=== PATIENT | male | born 1985 | race Caucasian/White ===

== ENCOUNTER 2020-03-22 12:58 | Emergency (ER) | payer MEDICAID ==
[~2020-03-22] VITALS: Ht 170.2 cm; Wt 85.7 kg
[~2020-03-22 12:58] MED LIST: IBUP-44 PO
[2020-03-22 13:24] VITALS: BP 138/81
--- NOTE | 2020-03-22 13:40 | NUR ---
35 y/o m c/c dizziness,numbness/tingling bilateral upper extremities since 1220 hours today. per pt exercising when s/s occurred, blood pressure taken outside of hospital and per pt was elevated, unable to recall what the bp was. In ER blood pressure taken 128/82. pt nka. no hx. no rx. no n/v/d. Neuro assessment wdl. cranial nerves II,III,IV,V,,VII,XII intact. No asymmetry noted. Equal strength in all extremities. side rail x1.
--- NOTE | 2020-03-22 15:06 | NUR ---
PT RESTING IN BED, SIDE RAIL X1
[2020-03-22 15:36] VITALS: BP 127/74
--- NOTE | 2020-03-22 15:36 | NUR ---
Patient discharged with v/s stable. Written and verbal after care instructions given and explained. Patient verbalized understanding. Ambulatory with steady gait. All questions addressed prior to discharge. Advised to follow up with PMD.
== END 2020-03-22 15:36 | disposition home or self-care (01) ==
LOC: MED 12:58
DX: R55 Syncope and collapse (principal); Z79.899 Other long term (current) drug therapy
CPT/HCPCS: 93005; 99283